=== PATIENT | female | born 1990 | race Hispanic/Latino ===

== ENCOUNTER → 2021-11-12 01:08 | Emergency (ER) | payer OTHER, SELFPAY ==
[~2021-11-12 01:08] MED LIST: Morphine 2 MG/ML VIAL ONE
== END | disposition home or self-care (01) ==
LOC: ERS 01:08
DX: S80.01XA Contusion of right knee, initial encounter (principal); R55 Syncope and collapse; K21.9 Gastro-esophageal reflux disease without esophagitis; V43.52XA Car driver injured in collision with other type car in traffic accident, initial encounter; W22.11XA Striking against or struck by driver side automobile airbag, initial encounter
CPT/HCPCS: 96374; J2270